=== PATIENT | female | born 1995 | race Caucasian/White ===

== ENCOUNTER → 2018-03-17 | Outpatient (CLI) | payer BC ==
[~2018-03-17] MED LIST: ALBU8.5H12 IH; AMPH20CA15 PO; BETA15OI TP; HYDR-4309 PO; ONDA4TAB PO; PRED20TA6 PO; RIZA10TA PO
[2018-03-17 13:30] LABS: PLATELET COUNT, AUTOMATED 220 K/uL (150-450)
== END ==
LOC: LAB 12:56
PROVIDERS: ATTEND Allergy & Immunology
DX: K92.1 Melena (principal)
CPT/HCPCS: 36415; 82040; 82150; 82247; 82310; 82374; 82435; 82565; 82784; 82947; 83516; 83520; 83690; 83735; 84075; 84100; 84132; 84155; 84295; 84450; 84460; 84520; 85025; 85651; 86140

== ENCOUNTER → 2018-03-23 | Outpatient (CLI) | payer BC ==
[~2018-03-23] MED LIST changes: +IOPAMIDOL 76% 100 ML INFUS BTL 100 ML ONE
--- NOTE | 2018-03-23 12:23 | RADIOLOGY IMAGING REPORT ---
FACILITY: [facility] [place] PATIENT NAME: Elham Long : 1995 MR: [id number] V: [id number] EXAM DATE: ORDERING PHYSICIAN: RODOLFO LYNN TECHNOLOGIST: Location: [facility] [place] Patient: Elham Long : 1995 Visit/Account:[id number] Date of Sevice: 03/23/2018 ADDENDUM #1 Dose Lowering Technique One of the following dose optimization techniques was utilized in the performance of this exam: Autom ated exposure control; adjustment of the mA and/or kV according to the patient's size; or use of an i terative reconstruction technique. Specific details can be referenced in the facility's radiology C T exam operational policy. Report Dictated By: Viki Shipley MD at 03/23/2018 2:05 PM Report E-Signed By: Viki Shipley MD at 03/23/2018 2:05 PM ORIGINAL REPORT ABDOMEN/PELVIS WITH CONTRAST HISTORY: Blood in stool and vomiting, abdomen pain x1 month TECHNIQUE: Following administration of IV contrast contiguous axial images acquired through the abdom en/pelvis. Coronal and sagittal reformatting also performed. CONTRAST: 75 mL Isovue-[id number] COMPARISON: None. FINDINGS: Visualized lung bases: Negative. Hepatobiliary: There is a small area of focal fatty infiltration adjacent to the falciform ligament Spleen: Negative. Adrenals: Negative. Pancreas: Negative. Kidneys ureters or bladder: Negative. Genitalia: There Is a trace amount of free pelvic fluid GI: There is no evidence of bowel wall thickening or bowel obstruction. . The appendix is not defi nitively seen although no inflammatory changes identified in the right lower quadrant Vessels/spaces/nodes: Negative. Bones/soft tissues: Minimal retrolisthesis of L5 with respect S1 Additional findings: None pertinent. IMPRESSION: Trace amount of free pelvic fluid.. The appendix is not definitively seen although no inflammatory change identified in the right lower q uadrant No CT findings to account for patient's blood in stool and following. Clinical follow-up needed Report Dictated By: Viki Shipley MD at 03/23/2018 12:10 PM Report E-Signed By: Viki Shipley MD at 03/23/2018 12:20 PM WSN:[email or web address]
== END ==
LOC: CT 06:59
PROVIDERS: ATTEND Physician Assistant Medical
DX: M35.9 Systemic involvement of connective tissue, unspecified (principal); L50.8 Other urticaria; K92.1 Melena; R14.0 Abdominal distension (gaseous); R10.32 Left lower quadrant pain; R11.2 Nausea with vomiting, unspecified; K59.00 Constipation, unspecified; K62.89 Other specified diseases of anus and rectum
CPT/HCPCS: 74177; Q9967

== ENCOUNTER → 2018-09-17 | Outpatient (CLI) | payer BC ==
[~2018-09-17] MED LIST changes: -HYDR-4309 PO; +HYDR-653 PO; -IOPAMIDOL 76% 100 ML INFUS BTL 100 ML ONE
== END ==
LOC: LAB 16:08
PROVIDERS: ATTEND Anesthesiology
DX: Z01.812 Encounter for preprocedural laboratory examination (principal); M25.811 Other specified joint disorders, right shoulder
CPT/HCPCS: 36415; 82040; 82247; 82310; 82374; 82435; 82565; 82947; 84075; 84132; 84155; 84295; 84450; 84460; 84520